=== PATIENT | female | born 1960 | race Caucasian/White ===

== ENCOUNTER → 2016-06-28 | Outpatient (CLI) | payer BC ==
--- NOTE | 2016-06-28 11:27 | MM ---
Reason for exam: screening (asymptomatic). Last mammogram was performed 1 year and 2 months ago. History: Patient is postmenopausal and had first child at age 38. Took hormonal contraceptives for 1 year. Physical Findings: A clinical breast exam by your physician is recommended on an annual basis and results should be correlated with mammographic findings. MG Screening Mammo w CAD Bilateral CC and MLO view(s) were taken. Prior study comparison: April 21, 2015, bilateral MG screening mammo w CAD. August 12, 2010, bilateral digital screening mammo w/CAD. The breast tissue is heterogeneously dense. This may lower the sensitivity of mammography. There is chronic nodularity in the left breast. There is no discrete abnormality. ASSESSMENT: Benign, BI-RAD 2 RECOMMENDATION: Routine screening mammogram of both breasts in 1 year.
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
== END | disposition home or self-care (01) ==
LOC: WWCWWP 08:49
PROVIDERS: ATTEND Obstetrics & Gynecology
DX: Z12.31 Encounter for screening mammogram for malignant neoplasm of breast (principal)

== ENCOUNTER → 2017-09-11 | Outpatient (CLI) | payer BC ==
--- NOTE | 2017-09-12 13:26 | MM ---
Reason for exam: screening (asymptomatic). Last mammogram was performed 1 year and 3 months ago. History: Patient is postmenopausal and had first child at age 38. Took hormonal contraceptives for 1 year. Physical Findings: A clinical breast exam by your physician is recommended on an annual basis and results should be correlated with mammographic findings. MG Screening Mammo w CAD Bilateral CC and MLO view(s) were taken. Prior study comparison: June 28, 2016, bilateral MG screening mammo w CAD. April 21, 2015, bilateral MG screening mammo w CAD. The breast tissue is heterogeneously dense. This may lower the sensitivity of mammography. There is chronic nodularity in the left axilla. There is no discrete abnormality. ASSESSMENT: Benign, BI-RAD 2 RECOMMENDATION: Routine screening mammogram of both breasts in 1 year.
== END | disposition home or self-care (01) ==
LOC: RADMAMWWP 11:27
PROVIDERS: ATTEND Internal Medicine
DX: Z12.31 Encounter for screening mammogram for malignant neoplasm of breast (principal)
CPT/HCPCS: 77067

== ENCOUNTER → 2017-10-25 | Outpatient (CLI) | payer BC ==
[2017-10-25 12:19] VITALS: BP 122/69; PULSE 65; TEMP 97.6; BMI 24.5
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
== END ==
LOC: WWCWWP 11:40
PROVIDERS: ATTEND Obstetrics & Gynecology
DX: Z53.9 Procedure and treatment not carried out, unspecified reason (principal)

== ENCOUNTER → 2018-05-17 | Outpatient (CLI) | payer BC ==
[2018-05-17 12:08] LABS: Basophils % (A) 1 %; Eosinophils # (A) 0.5 k/uL (0-0.7); Eosinophils % (A) 10 %; HCT 33.9 % (34.0-46.0); HGB 11.2 gm/dL (11.4-16.0); Lymphocytes # (A) 1.9 k/uL (1.0-4.8); Lymphocytes % (A) 38 %; MCH 27.8 pg (25.0-35.0); MCHC 33.1 g/dL (31.0-37.0); Mean Platelet Volume 6.5; Monocytes # (A) 0.3 k/uL (0-1.0); Monocytes % (A) 6 %; Neutrophils # (A) 2.1 k/uL (1.3-7.7); Neutrophils % (A) 41 %; Platelet Count 260 k/uL (150-450); RBC 4.04 m/uL (3.80-5.40); RDW 12.6 % (11.5-15.5); WBC 5.1 k/uL (3.8-10.6)
[2018-05-17 16:24] LABS: Hepatitis A Antibody IgM Non-Reactive (Non-Reactive); Hepatitis B Core IgM Non-Reactive (Non-Reactive)
[2018-05-18 12:49] LABS: ALT 33 U/L (8-44); AST 39 U/L (13-35); Albumin/Globulin Ratio 1.79 (1.20-2.10); Alkaline Phosphatase 87 U/L (41-126); Bilirubin, Conjugated <0.20 mg/dL (0.20-0.40); Globulin 2.4 g/dL (1.6-3.3); Total Bilirubin 0.3 mg/dL (0.2-1.2); Total Protein 6.7 g/dL (6.2-8.2)
[2018-05-18 14:16] LABS: HCV Quant Log <1.08 (<1.08); HCV Quantitative Result <12 IU/mL (<12)
== END | disposition home or self-care (01) ==
LOC: LABWHC1 11:27
PROVIDERS: ATTEND Physician Assistant
DX: Z09 Encounter for follow-up examination after completed treatment for conditions other than malignant neoplasm (principal); Z86.19 Personal history of other infectious and parasitic diseases
CPT/HCPCS: 36415; 80074; 80076; 85025; 87522

== ENCOUNTER → 2019-02-05 | Outpatient (CLI) | payer BC ==
[2019-02-05 11:23] VITALS: BP 144/89; PULSE 46; RESP 18; TEMP 97.8; BMI 31.1
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
--- NOTE | 2019-02-07 08:48 | MM ---
Reason for exam: screening (asymptomatic). Last mammogram was performed 1 year and 5 months ago. History: Patient is postmenopausal and had first child at age 38. Took hormonal contraceptives for 1 year. Physical Findings: A clinical breast exam by your physician is recommended on an annual basis and results should be correlated with mammographic findings. MG 3D Screening Mammo W/Cad Bilateral CC and MLO view(s) were taken. Prior study comparison: September 11, 2017, bilateral MG screening mammo w CAD. June 28, 2016, bilateral MG screening mammo w CAD. There are scattered fibroglandular densities. There is no discrete abnormality. No significant changes when compared with prior studies. ASSESSMENT: Negative, BI-RAD 1 RECOMMENDATION: Routine screening mammogram of both breasts in 1 year.
== END | disposition home or self-care (01) ==
LOC: WWCWWP 10:41
PROVIDERS: ATTEND Obstetrics & Gynecology
DX: Z12.31 Encounter for screening mammogram for malignant neoplasm of breast (principal)
CPT/HCPCS: 77063; 77067

== ENCOUNTER 2020-09-13 13:53 | Observation (INO) | payer BC ==
[2020-09-13] MEDS ORDERED: ASPIRIN 81 MG PO STA (14:07)
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
--- NOTE | 2020-09-13 14:46 | XR ---
EXAMINATION TYPE: XR chest 1V portable DATE OF EXAM: 09/13/2020 COMPARISON: NONE HISTORY: Chest pain. TECHNIQUE: Single view FINDINGS: Heart and mediastinum are normal. Lungs are clear of infiltrate. There is no heart failure. There are no hilar masses. Bony thorax is intact. IMPRESSION: No active cardiopulmonary disease. Normal heart.
[2020-09-13 15:01] LABS: Basophils % (A) 0 %; Eosinophils # (A) 0.3 k/uL (0-0.7); Eosinophils % (A) 3 %; HCT 35.3 % (34.0-46.0); HGB 11.4 gm/dL (11.4-16.0); Lymphocytes # (A) 3.1 k/uL (1.0-4.8); Lymphocytes % (A) 31 %; MCH 28.8 pg (25.0-35.0); MCHC 32.4 g/dL (31.0-37.0); MCV 88.9 fL (80.0-100.0); Mean Platelet Volume 7.1; Monocytes # (A) 0.5 k/uL (0-1.0); Monocytes % (A) 5 %; Neutrophils % (A) 59 %; Platelet Count 288 k/uL (150-450); RBC 3.97 m/uL (3.80-5.40); RDW 13.5 % (11.5-15.5); WBC 10.1 k/uL (3.8-10.6)
[2020-09-13 15:17] LABS: Albumin 3.9 g/dL (3.5-5.0); Calcium 9.2 mg/dL (8.4-10.2); Magnesium 1.9 mg/dL (1.6-2.3); Total Bilirubin 0.6 mg/dL (0.2-1.3); Total Protein 6.9 g/dL (6.3-8.2)
[2020-09-13 15:26] LABS: Potassium 4.9 mmol/L (3.5-5.1)
[2020-09-13] MEDS ORDERED: MORPHINE SULFATE 4 MG/ML SYRINGE IV PRN (15:46)
[2020-09-13] MEDS ORDERED: NALOXONE 0.4 MG/ML 1 ML VIAL IV PRN (15:46)
[2020-09-13] MEDS ORDERED: ACETAMINOPHEN TAB 325 MG TAB PO PRN (15:46)
[2020-09-13] MEDS ORDERED: NITROGLYCERIN SL TABS 0.4 MG TAB SUBLINGUAL PRN (15:50)
[2020-09-13] MEDS ORDERED: SODIUM CHLORIDE 0.9% 1,000 ML IV SCH (16:00)
[2020-09-13 16:37] LABS: D-Dimer 0.31 mg/L FEU (<0.60); INR 0.9 (<1.2)
[2020-09-13 16:53] LABS: Partial Thromboplastin Time 20.7 sec (22.0-30.0)
[2020-09-13 18:20] VITALS: RESP 18
[2020-09-13] MEDS ORDERED: ALBUTEROL NEBULIZED 2.5 MG/3 ML INHALATION PRN (18:46)
[2020-09-13] MEDS ORDERED: TEMAZEPAM 15 MG CAP PO PRN (18:47)
[2020-09-13] MEDS ORDERED: LORazepam 0.5 MG TAB PO PRN (18:47)
--- NOTE | 2020-09-13 19:48 | HP ---
HISTORY AND PHYSICAL DATE OF SERVICE: 09/13/2020. CHIEF COMPLAINT: Chest pain and chest constriction. HISTORY OF PRESENT ILLNESS: This 60-year-old woman with a past medical history of multiple medical problems including liver disease, history of hepatitis C, history of splenectomy, history of anxiety, history of polysubstance abuse in the remote past, being followed by Dr. Bryant in the outpatient setting was complaining of chest discomfort. The pain was felt in the anterior part of the chest, was constricting on both lower parts and the patient came to [facility] and was admitted for further evaluation and treatment. There is no history of fever, rigors or chills. No history of headache, loss of consciousness, seizures at this time. The patient did have an EKG that showed ST-T changes and non-progression R-wave. Otherwise, the chest x-ray which was done in the ER, which was reviewed personally by me, showed no acute abnormality. The initial troponins were negative. Creatinine was slightly elevated at 1.29. The previous creatinine values are not available at this time. The patient's pain also subsequently radiating to both arms and also radiate up to the neck according to her. There are no associated sweating or palpitations. PAST MEDICAL HISTORY: History of chronic liver disease, hepatitis C, history of splenectomy, history of anxiety. MEDICATIONS: Prior to admission home medications are: Zestril, fish oil, aspirin, Ventolin, Xanax, Restasis. ALLERGIES: None. FAMILY HISTORY: History of multiple sclerosis in the family in a sister. SOCIAL HISTORY: Previous history of smoking. No history of current smoking, alcohol intake. REVIEW OF SYSTEMS: ENT: No diminished vision. No diminished hearing. CARDIOVASCULAR SYSTEM: As mentioned earlier. RESPIRATORY: As mentioned earlier. GI: As mentioned earlier. no dysuria. NERVOUS SYSTEM: No numbness, weakness. ALLERGY/IMMUNOLOGY: No asthma or hayfever. MUSCULOSKELETAL: As mentioned earlier. HEMATOLOGY/ONCOLOGY: No history of anemia. ENDOCRINE: No history of diabetes or hypothyroidism. CONSTITUTIONAL: As mentioned earlier. DERMATOLOGY: Negative. RHEUMATOLOGY: Negative. PSYCHIATRY: As mentioned earlier. PHYSICAL EXAMINATION: Alert and oriented times three. Pulse 77. Blood pressure 130/72, respiration 18, temperature 97.3, pulse ox 97% on room air. HEENT: Conjunctivae normal. Oral mucosa moist. NECK is no jugular venous distention. No carotid bruit. No lymph node enlargement. CARDIOVASCULAR systems: S1, S2. RESPIRATION: Breath sounds diminished in the bases. No rhonchi. No crackles. ABDOMEN: Soft, nontender. No mass palpable. LEGS: No edema. No swelling. NERVOUS SYSTEM: Higher functions as mentioned. Moves all 4 limbs. No focal motor or sensory deficits. LYMPHATICS: No lymph nodes palpable in the neck, axillae or groin. SKIN: No ulcer, rashes or bleeding. JOINTS: No active deforming arthropathy. LABS: CBC within normal limits. Creatinine is 1.9, glucose 148. ASSESSMENT: 1. Chest pain, possible unstable angina. 2. Possible acute renal failure. 3. Elevated random glucose. 4. History of hepatitis C and chronic liver issues. 5. History of splenectomy. 6. History of anxiety. 7. Remote history of polysubstance abuse. RECOMMENDATIONS AND DISCUSSION: This 60-year-old woman presented with multiple complex medical issues, at this time, I recommend continue current medications, management and symptomatic treatment. Rule out myocardial infarction. Angina protocol. Cardiology consultation. Possible stress test. Guarded prognosis because of multiple complex medical issues. A copy of this dictation being forwarded to Dr. Bryant who is the primary physician. MMODL / IJN: [id number] / MTDD
[2020-09-13] MEDS ORDERED: LEMBOREXANT 10 MG PO SCH (21:00)
[2020-09-13] MEDS: cycloSPORINE 0.05% OPHTH 0.4 ML DROPERETTE BOTH EYES SCH (21:19)
[2020-09-13] MEDS: ALPRAZolam 1 MG TAB PO PRN (21:19)
[2020-09-13 21:46] LABS: Potassium 4.6 mmol/L (3.5-5.1)
[2020-09-13 21:47] LABS: ALT 19 U/L (4-34); AST 25 U/L (14-36); African American GFR (CKD) 60 (>60 ml/min/1.73 sqM); Albumin 3.7 g/dL (3.5-5.0); Albumin/Globulin Ratio 1.3; Alkaline Phosphatase 82 U/L (38-126); Anion Gap 8 mmol/L; Blood Urea Nitrogen 29 mg/dL (7-17); Calcium 9.3 mg/dL (8.4-10.2); Carbon Dioxide 25 mmol/L (22-30); Chloride 105 mmol/L (98-107); Globulin 2.9 g/dL; Glucose 95 mg/dL (74-99); Non-African American GFR(CKD) 52 (>60 ml/min/1.73 sqM); Sodium 138 mmol/L (137-145); Total Bilirubin 0.3 mg/dL (0.2-1.3); Total Protein 6.6 g/dL (6.3-8.2)
[2020-09-14] MEDS ORDERED: ASPIRIN 81 MG PO SCH (09:00)
[2020-09-14 09:06] LABS: Basophils # (A) 0.07 X 10*3/uL (0.00-0.10); Basophils % (A) 0.8 %; Eosinophils # (A) 0.45 X 10*3/uL (0.04-0.35); Eosinophils % (A) 4.9 %; HCT 35.1 % (37.2-46.3); Lymphocytes # (A) 3.21 X 10*3/uL (0.90-5.00); Lymphocytes % (A) 35.2 %; MCHC 31.3 g/dL (32.0-37.0); MCV 92.6 fL (80.0-97.0); Mean Platelet Volume 9.8 fL (9.5-12.2); Monocytes # (A) 0.65 X 10*3/uL (0.20-1.00); Monocytes % (A) 7.1 %; Neutrophils # (A) 4.72 X 10*3/uL (1.80-7.70); Neutrophils % (A) 51.7 %; Platelet Count 302 X 10*3/uL (140-440); RBC 3.79 X 10*6/uL (4.10-5.20); RDW 13.7 % (11.5-14.5); WBC 9.13 X 10*3/uL (4.50-10.00)
[2020-09-14] MEDS: ALPRAZolam 1 MG TAB PO PRN (09:31)
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
[2020-09-14 09:34] VITALS: TEMP 97.6
[2020-09-14] MEDS: cycloSPORINE 0.05% OPHTH 0.4 ML DROPERETTE BOTH EYES SCH (10:36)
[2020-09-14] MEDS ORDERED: DOBUTamine DRIP for NUC MED 500 MG in DEXTROSE/WATER 1 250ML.BAG IV PRN (10:52)
--- NOTE | 2020-09-14 11:18 | ECHOF ---
Referral Reason:chest pain MEASUREMENTS -------- HEIGHT: 165.1 cm WEIGHT: 90.7 kg BP: RVIDd: 2.8 cm (< 3.3) IVSd: 1.2 cm (0.6 - 1.1) LVIDd: 4.4 cm (3.9 - 5.3) LVPWd: 0.6 cm (0.6 - 1.1) IVSs: 1.3 cm LVIDs: 3.6 cm LVPWs: 1.1 cm LAESV Index (A-L): 28.96 ml/m Ao Diam: 3.2 cm (2.0 - 3.7) AV Cusp: 2.3 cm (1.5 - 2.6) LA Diam: 3.5 cm (2.7 - 3.8) MV EXCURSION: 12.148 mm (> 18.000) MV EF SLOPE: 83 mm/s (70 - 150) EPSS: 0.3 cm MV E Marcello: 0.62 m/s MV DecT: 197 ms MV A Marcello: 0.89 m/s MV E/A Ratio: 0.70 RAP: 5.00 mmHg RVSP: 24.64 mmHg FINDINGS -------- Sinus rhythm. This was a technically adequate study. LV size, wall thickness and systolic function are normal, with an EF greater than 55%. The left nael tricular size is normal. The diastolic filling pattern is normal for the age of the patient 7.38. The right ventricle is normal in size. Normal LA size by volume 22+/-6 ml/m2. The right atrial size is normal. The aortic valve is trileaflet, and appears structurally normal. No aortic stenosis or regurgitation. The mitral valve is normal. Mild mitral regurgitation is present. The tricuspid valve appears structurally normal. Mild tricuspid regurgitation present. Right vent ricular systolic pressure is normal at < 35 mmHg. There is no pulmonic regurgitation present. The aortic root size is normal. There is no pericardial effusion. CONCLUSIONS -------- 1. LV size, wall thickness and systolic function are normal, with an EF greater than 55%. 2. Normal LA size by volume 22+/-6 ml/m2. 3. The aortic valve is trileaflet, and appears structurally normal. No aortic stenosis or regurgitati on. 4. Mild mitral regurgitation is present. 5. Mild tricuspid regurgitation present. PAINT MIXER: Myrna Escalante RDCS
[2020-09-14 13:03] VITALS: BP 125/90; PULSE 68
--- NOTE | 2020-09-14 13:52 | ECHOS ---
STRESS ECHOCARDIOGRAM INDICATIONS: Chest pain MEDICATIONS: BASELINE HEART RATE: 67 BASELINE BLOOD PRESSURE: 131/73 MAXIMUM HEART RATE: 130 MAXIMUM BLOOD PRESSURE: 242/43 85% MPHR: 137 100% MPHR: 161 METS: N/A MAXIMUM STAGE REACHED: TOTAL EXERCISE TIME: CLINICAL INFORMATION: Baseline rhythm is sinus mechanism, rate of 67, normal axis and intervals. Normal electrocardiogram. Baseline blood pressure 131/73 mmHg. Patient received infusion of dobutamine per protocol, peak rate 124 beats per minute which is equal to 77% of maximum predicted heart rate. Peak blood pressure 242/63 mmHg. Electrocardiograph monitoring revealed no evidence of diagnostic ischemic ST deviation. Rare PVCs were noted. FINDINGS: Baseline echocardiogram revealed normal wall thickening and motion. At peak infusion, there was normal wall motion augmentation with no hypokinesis or dyskinesis. CONCLUSION: 1. Nondiagnostic electrocardiograph dobutamine stress testing secondary to the inability to achieve 85% maximum predicted heart rate. 2. Nondiagnostic stress dobutamine echocardiogram secondary to the inability to achieve 85% maximum predicted heart rate, but at the rate achieved there was no evidence of stress-induced ischemia. MMODL / IJN: [id number] /
--- NOTE | 2020-09-14 20:41 | DS ---
DISCHARGE SUMMARY FINAL DIAGNOSES: 1. Chest pain. Myocardial infarction ruled out. Nondiagnostic stress test. 2. Possible acute renal failure with acute tubular necrosis. 3. Increased random glucose. 4. History of hepatitis C and chronic liver disease. 5. History of splenectomy. 6. History of anxiety. 7. Remote history of polysubstance abuse. DISCHARGE DISPOSITION: The patient will be discharged in stable condition with guarded prognosis. HISTORY OF PRESENT ILLNESS: This 60-year-old woman with a past medical history of multiple medical problems presented with chest pain. Myocardial infarction was ruled out. Cardiology performed a stress test, but the test was nondiagnostic because of the lack of achieving the maximal heart rate. The patient is stable at this time. Patient was recommend to be discharged and follow up in the outpatient setting. On exam, vitals are stable. CARDIOVASCULAR SYSTEM: S1, S2 muffled. ABDOMEN: Soft. NERVOUS SYSTEM: No focal deficit. DISCHARGE ADVICE AND MEDICATIONS: 1. Cardiac diet. 2. Activity limited until followup. 3. Follow up with Dr. Bryant in 2-3 days. 4. Follow up with Dr. Franco, Cardiology, and outpatient stress test possibly. 5. Dayvigo 10 mg at bedtime. 6. Ecotrin 81 mg daily. 7. Winfield-3 fatty acids 1 p.o. daily. 8. Restasis 1 drop both eyes. 9. Subutex 8 mg p.o. daily. 10.Ventolin 2 puffs q.i.d. and p.r.n. 11.Xanax 1 mg t.i.d. p.r.n. Once again, the patient will be discharged in stable condition with guarded prognosis. MMODL / IJN: [id number] /
== END 2020-09-14 14:06 | disposition left against medical advice (07) ==
LOC: EC 13:53 → 6NMEDSUR 15:46
PROVIDERS: ADMIT Hospitalist; ATTEND Hospitalist
DX: R07.89 Other chest pain (principal); B18.2 Chronic viral hepatitis C; R79.89 Other specified abnormal findings of blood chemistry; R73.09 Other abnormal glucose; F41.9 Anxiety disorder, unspecified; Z79.82 Long term (current) use of aspirin; Z79.899 Other long term (current) drug therapy; Z20.822 Contact with and (suspected) exposure to COVID-19; Z90.81 Acquired absence of spleen; Z86.79 Personal history of other diseases of the circulatory system; Z86.19 Personal history of other infectious and parasitic diseases; Z87.898 Personal history of other specified conditions; Z87.891 Personal history of nicotine dependence; Z82.0 Family history of epilepsy and other diseases of the nervous system; Z53.29 Procedure and treatment not carried out because of patient's decision for other reasons
CPT/HCPCS: 96361 ×2; 96360; 99285; 36415; 93005; 93306; 93351; 85379; 80053; 87449; 83735; 84484; 85025 ×2; 85610; 85730; 87635; 71045; G0378 ×2

== ENCOUNTER → 2020-10-06 | Outpatient (CLI) | payer BC ==
[2020-10-06 18:14] LABS: African American GFR (CKD) 47.5 (60.0-200.0); Albumin 4.3 g/dL (3.80-4.90); Albumin/Globulin Ratio 1.65 (1.60-3.17); Anion Gap 12.4 mmol/L (4.00-12.00); BUN/Creat Ratio 27.14 Ratio (12.00-20.00); Calcium 9.3 mg/dL (8.7-10.3); Carbon Dioxide 21.6 mmol/L (21.6-31.8); Globulin 2.6 g/dL (1.6-3.3); Potassium 4.6 mmol/L (3.5-5.5); Total Bilirubin 0.5 mg/dL (0.2-1.2); Total Protein 6.9 g/dL (6.2-8.2)
== END | disposition home or self-care (01) ==
LOC: LABWHC1 09:29
PROVIDERS: ATTEND Internal Medicine
DX: N18.9 Chronic kidney disease, unspecified (principal); R94.5 Abnormal results of liver function studies; R73.9 Hyperglycemia, unspecified
CPT/HCPCS: 36415; 80053

== ENCOUNTER → 2020-10-14 | Outpatient (CLI) | payer BC ==
[2020-10-14 10:05] VITALS: BP 111/75; PULSE 80; RESP 18; TEMP 98
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
--- NOTE | 2020-10-15 11:17 | MM ---
Reason for exam: screening (asymptomatic). Last mammogram was performed 1 year and 8 months ago. History: Patient is postmenopausal and had first child at age 38. Took hormonal contraceptives for 1 year. Physical Findings: A clinical breast exam by your physician is recommended on an annual basis and results should be correlated with mammographic findings. MG Screening Mammo w CAD Bilateral CC and MLO view(s) were taken. Prior study comparison: February 05, 2019, bilateral MG 3d screening mammo w/cad. September 11, 2017, bilateral MG screening mammo w CAD. The breast tissue is heterogeneously dense. This may lower the sensitivity of mammography. There are benign appearing round calcifications in the right breast. There is chronic nodularity in the left breast. There is no discrete abnormality. ASSESSMENT: Benign, BI-RAD 2 RECOMMENDATION: Routine screening mammogram of both breasts in 1 year.
== END | disposition home or self-care (01) ==
LOC: WWCWWP 09:36
PROVIDERS: ATTEND Obstetrics & Gynecology
DX: Z12.31 Encounter for screening mammogram for malignant neoplasm of breast (principal); Z78.0 Asymptomatic menopausal state
CPT/HCPCS: 77067

== ENCOUNTER → 2020-12-03 | Outpatient (CLI) | payer BC ==
[2020-12-04 03:31] LABS: African American GFR (CKD) 57.3 (60.0-200.0); Non-African American GFR(CKD) 49.4 (60.0-200.0)
== END | disposition home or self-care (01) ==
LOC: LABWHC1 13:18
PROVIDERS: ATTEND Internal Medicine
DX: N18.9 Chronic kidney disease, unspecified (principal); R73.9 Hyperglycemia, unspecified
CPT/HCPCS: 36415; 82565; 82947; 83036; 84520

== ENCOUNTER → 2021-03-30 | Outpatient (CLI) | payer OTHER ==
--- NOTE | 2021-03-30 13:48 | XR ---
EXAMINATION TYPE: XR lumbosacral spine 5 views, XR knee limited 2 views RT DATE OF EXAM: 03/30/2021 Comparison: None Clinical History: 61-year-old female M54.5 lumbar pain, M25.561, right knee pain. Findings: Lumbar spine: There is a transitional lumbosacral segment with left L5 hemisacralization and degenerative appearanc e to the assimilation joint. Moderate degenerative disc disease above at L4-L5 along with hypertrophi c facet arthropathy. Mild to moderate degenerative disc disease L3-L4. Vertebral body heights are pre served and alignment is maintained. Right knee: Tricompartmental degenerative spurring. Extensor mechanism appears intact. No knee joint effusion. We ightbearing view could better assess the degree of joint space narrowing. No acute fracture, subluxat ion, or dislocation. Impression: 1. 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 Moderate degenerat gracie disc disease above at L4-L5 along with hypertrophic facet arthropathy and mild to moderate degene rative disc disease L3-L4. No vertebral compression collapse. 2. Right knee: Mild to moderate tricompartmental degenerative spurring. Weightbearing view could bett er assess the degree of joint space narrowing. No knee joint effusion.
== END | disposition home or self-care (01) ==
LOC: RADXRMAIN 12:49
PROVIDERS: ATTEND Family Medicine
DX: M51.36 Other intervertebral disc degeneration, lumbar region (principal); M47.896 Other spondylosis, lumbar region; M25.561 Pain in right knee; M54.50 Low back pain, unspecified
CPT/HCPCS: 72110

== ENCOUNTER → 2022-01-21 | Outpatient (CLI) | payer BC ==
--- NOTE | 2022-01-21 14:23 | MR ---
EXAMINATION TYPE: MR knee LT wo con DATE OF EXAM: 01/21/2022 COMPARISON: Outside bilateral knee x-rays January 04, 2022 HISTORY: LEFT KNEE PAIN TECHNIQUE: Multiplanar, multisequence imaging of the left knee is performed without IV contrast. FINDINGS: MEDIAL MENISCUS: Medial extrusion of medial meniscus with increased signal. Truncated appearance post erior horn with increased signal extending to articular surface sagittal image 27. LATERAL MENISCUS: Anterior and posterior horns are intact without tear. CRUCIATE LIGAMENTS: The anterior and posterior cruciate ligaments are intact and unremarkable. COLLATERAL LIGAMENTS: The medial collateral ligament and lateral collateral ligament complex are inta ct and unremarkable. EXTENSOR MECHANISM: Visualized quadriceps and patellar tendons are intact. EFFUSION: No significant suprapatellar joint effusion. POPLITEAL CYST: No popliteal/sahni cyst. TRICOMPARTMENT SPACES: Moderate to severe narrowing and spurring patellofemoral compartment. Mild to moderate narrowing and moderate spurring lateral tibiofemoral and medial tibiofemoral compartments. CARTILAGE: Chondromalacia patella with fissuring and cartilaginous loss along the posterior patellar pole. Full-thickness defect superiorly are present. Cartilaginous loss medial tibiofemoral compartmen t also identified. BONE MARROW SIGNAL: Areas of heterogeneous increased T2 signal through the posterior patellar pole gr eatest superiorly are identified. OTHER: No additional significant abnormality is appreciated. IMPRESSION: 1. Tricompartment degenerative changes fairly advanced involving the patellofemoral compartment are n oted as detailed above. Moderate to advanced findings medial tibial femoral compartment noted. 2. Full-thickness tearing of the posterior horn extending into central body of the medial meniscus.
== END | disposition home or self-care (01) ==
LOC: RADMRIMAIN 12:50
PROVIDERS: ATTEND Orthopaedic Surgery
DX: S83.242A Other tear of medial meniscus, current injury, left knee, initial encounter (principal); X58.XXXA Exposure to other specified factors, initial encounter

== ENCOUNTER → 2022-01-26 | Outpatient (CLI) | payer BC ==
[2022-01-26 08:09] VITALS: BP 116/78; PULSE 81; RESP 17; TEMP 97.8
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
== END ==
LOC: WWCWWP 07:54
PROVIDERS: ATTEND Obstetrics & Gynecology
DX: Z12.31 Encounter for screening mammogram for malignant neoplasm of breast (principal); Z01.419 Encounter for gynecological examination (general) (routine) without abnormal findings; Z78.0 Asymptomatic menopausal state; F41.9 Anxiety disorder, unspecified; Z87.891 Personal history of nicotine dependence
CPT/HCPCS: 77063; 77067

== ENCOUNTER → 2022-02-09 | Outpatient (CLI) | payer BC ==
--- NOTE | 2022-02-09 14:43 | USB ---
Reason for Exam: Additional evaluation requested from abnormal screening. Patient History: Menarche at age 16. First Full-Term at age 38. Late child-bearing (after 30). Postmenopausal. Patient used Hormonal Contraceptives for 1 year. Risk Values: Cathryn 5 year model risk: 1.8%. NCI Lifetime model risk: 9.1%. Technique: Method: Targeted. Prior Study Comparison: 02/05/2019 Bilateral Screening Mammogram, [facility]. 10/14/2020 Bilateral Screening Mammogram, [facility]. 01/26/2022 Bilateral MG 3D screening mammo w/cad, [facility]. Findings: The upper outer quadrant of the right breast and the axilla of the right breast were scanned. No solid or cystic masses are identified.. Overall Assessment: Negative, BI-RAD 1 Management: Diagnostic Mammogram of the right breast in 6 months. A clinical breast exam by your physician is recommended on an annual basis and results should be correlated with mammographic findings. Electronically signed and approved by: Rakan Sheikh M.D. Radiologis
== END | disposition home or self-care (01) ==
LOC: RADMAMWWP 13:44
PROVIDERS: ATTEND Obstetrics & Gynecology
DX: R92.8 Other abnormal and inconclusive findings on diagnostic imaging of breast (principal)
CPT/HCPCS: 77061; 77065

== ENCOUNTER 2022-08-04 11:09 | Day surgery (SDC) | payer BC ==
[2022-07-28 11:48] VITALS: BMI 31.4
--- NOTE | 2022-08-03 21:33 | HP ---
HISTORY AND PHYSICAL DATE OF SURGERY: 08/04/2022. HISTORY OF PRESENT ILLNESS: Sienna Brooks is a 62-year-old patient seen with progressive left knee pain. We discussed options for treatment. She elected to proceed with a left knee arthroscopy. Consent regarding procedure was obtained. PAST MEDICAL HISTORY: Hypertension. PAST SURGICAL HISTORY: Noncontributory. DAILY MEDICATIONS: 1. Lisinopril. 2. Aleve. 3. Wellbutrin. ALLERGIES: None. SOCIAL HISTORY: She denies tobacco use. PHYSICAL EVALUATION OF THE LEFT KNEE: Range of motion is 0 to 110 degrees. Mild effusion. Tenderness along the medial and lateral joint lines. Positive medial Toyin's. Positive lateral Toyin's. Ligaments stable. Hip rotation without pain. Distal neurovascular exam is intact. RADIOGRAPHS: Radiographs of the left knee revealed moderate osteoarthritic changes. MRI left knee revealed medial meniscal tear and osteoarthritic changes. IMPRESSION: 1. Internal derangement of left knee with medial meniscal tear. 2. Hypertension. PLAN: Left knee arthroscopy with partial medial meniscectomy and debridement. MMODL / IJN: [id number] /
[~2022-08-04 11:09] MED LIST: DEXAMETHASONE SOD PHOSPHATE 4 MG/ML 1 ML VIAL IV ONE; LACTATED RINGERS 1,000 ML IV SCH; LIDOCAINE 1% (10MG/ML) FOR IV START INTRADERMA PRN; MIDAZOLAM 2 MG/2 ML VIAL IV PRN; ONDANSETRON 4 MG/2 ML VIAL IVP ONE
[2022-08-04] MEDS ORDERED: PROPOFOL 10 MG/ML 20 ML VIAL IV ONE (12:33)
[2022-08-04] MEDS ORDERED: LIDOCAINE 2% INJ 20 MG/ML (2 ML VIAL) ONE (12:33)
[2022-08-04] MEDS ORDERED: MIDAZOLAM 2 MG/2 ML VIAL ONE (12:33)
[2022-08-04] MEDS ORDERED: fentaNYL (PF) 50 MCG/ML 2 ML AMP ONE (12:33)
[2022-08-04] MEDS ORDERED: KETAMINE 10 MG/ML 20 ML VIAL ONE (12:33)
[2022-08-04] MEDS ORDERED: HYDROmorphone (PF) 1 MG/ML ONE (12:33)
[2022-08-04] MEDS ORDERED: BUPIVACAIN-EPI 0.25%-1:200,000 30 ML VIAL INTRAARTIC ONE (12:38)
--- NOTE | 2022-08-04 13:21 | P.OP ---
Date of Procedure: 08/04/22 Preoperative Diagnosis: Internal derangement left knee Postoperative Diagnosis: 1. Tear medial and lateral meniscus left knee 2. Grade 4 chondromalacia medial femoral condyle left knee 3. Grade 2 chondromalacia patella left knee 4. Reactive synovitis medial, lateral and suprapatellar compartments left knee Procedure(s) Performed: 1. Arthroscopic partial medial and lateral meniscectomy left knee 2. Arthroscopic microfracture medial femoral condyle left knee 3. Arthroscopic chondroplasty medial femoral condyle left knee 4. Arthroscopic chondroplasty patella left knee 5. Arthroscopic partial synovectomy medial, lateral and suprapatellar miko rtments left knee Anesthesia: ENEDINAA, local Surgeon: Mike Dawson Estimated Blood Loss (ml): 9 Pathology: none sent Condition: stable Disposition: PACU Indications for Procedure: 62-year-old patient seen with progressive left knee pain. After having treatment options discussed, she elected to proceed with left knee arthroscopy. Operative Findings: See description of procedure Description of Procedure: Patient was taken to the operative suite. Patient underwent a general anesthetic by the department of anesthesia. Patient was given preoperative antibiotics. The left lower extremity was placed in a well-padded arthroscopic leg arizmendi. The left leg was prepped and draped in the normal sterile orthopedic fashion. A lateral parapatellar and suprapatellar incision was made. Trochars were inserted. Arthroscopy was initiated. Suprapatellar pouch revealed diffuse thick reactive synovitis. The patellofemoral joint appeared to articulate congruently. There was grade 3, she patella with some osteochondral flap tears present.. The scope was guided into the medial gutter. No loose bodies or plica were identified. The scope was then guided into the medial compartment. A medial parapatellar incision was made. Trocar inserted followed by probe. There was a complex tear involving the posterior horn of the medial meniscus. There were grade 3/4 chondromalacia changes of the medial femoral condyle with some diffuse osteochondral flap tears present. There was some thick reactive synovitis anteriorly. I performed a partial medial meniscectomy getting down to stable meniscal tissue. I performed a chondroplasty of the medial femoral condyle getting down to stable osteochondral tissue. I performed a partial synovectomy decompressing the thick reactive synovitis. I did note an area of exposed bone weightbearing surface medial femoral condyle/grade 4 chondromalacia. It was approximately 1 cm involving the weightbearing surface. I introduced a microfracture awl. I performed a microfracture to the area with resultant bleeding at the microfracture site. I again probe the residual osteochondral surface it was stable. The residual meniscus was stable. There was good decompression of the synovitis. Scope and probe were then guided into the intercondylar notch. Cruciates were identified, probed and found to be stable. The scope and probe were then guided into lateral compartment. There was a radial tear involving the midbody lateral meniscus. There was some thick reactive synovitis anteriorly. There were grade 1 chondromalacia changes of lateral compartment with no tears. I performed a partial lateral meniscectomy getting down to stable meniscal tissue. I performed a partial synovectomy decompressing the reactive synovitis. The residual meniscus was stable. There was good decompression of the synovitis. The scope was in guided back into the suprapatellar compartment. I introduced a motorized shaver into the s uprapatellar compartment. I debrided some piecemeal fragments of meniscus I encountered. I performed a chondroplasty of the patella. I performed a partial synovectomy. The shaver was now removed. The residual osteochondral surface of patella was stable. There was good decompression of the synovitis. I now took one more look around the entire knee, no residual debris. Instruments were now removed from the joint. The joint was infiltrated with .25% Marcaine. Steri- Strips were applied to the portal sites. Sterile dressings were applied. The patient was placed into a KAYLA hose. No tourniquet was utilized. The patient was awakened, transferred to a bed and taken to recovery stable satisfactory condition.
[2022-08-04 13:27] VITALS: TEMP 97.4
[2022-08-04] MEDS: HYDROmorphone 0.5 MG/0.5 ML SYRINGE IVP PRN ×2 (13:33→13:49)
[2022-08-04 14:26] VITALS: RESP 16
[2022-08-04 15:20] VITALS: BP 160/83; PULSE 56
== END 2022-08-04 16:00 | disposition home or self-care (01) ==
LOC: OR 11:09
PROVIDERS: ATTEND Orthopaedic Surgery
DX: S83.282A Other tear of lateral meniscus, current injury, left knee, initial encounter (principal); S83.242A Other tear of medial meniscus, current injury, left knee, initial encounter; M17.12 Unilateral primary osteoarthritis, left knee; I10 Essential (primary) hypertension; M22.42 Chondromalacia patellae, left knee; M65.9 Synovitis and tenosynovitis, unspecified; X58.XXXA Exposure to other specified factors, initial encounter
CPT/HCPCS: 29880; 29879; J2250; J1100; J0690; J2405; J3010; J1170 ×2; J2704; J2001

== ENCOUNTER → 2022-09-02 | Outpatient (CLI) | payer BC ==
[2022-09-02 15:49] LABS: Potassium 5.1 mmol/L (3.5-5.5)
[2022-09-02 16:20] LABS: Basophils # (A) 0.06 X 10*3/uL (0.00-0.10); Eosinophils # (A) 1.12 X 10*3/uL (0.04-0.35); Eosinophils % (A) 19.5 %; HCT 36.2 % (37.2-46.3); HGB 11.7 g/dL (12.0-15.0); Immature Grans, Automated 0.2 %; Lymphocytes # (A) 1.48 X 10*3/uL (0.90-5.00); Lymphocytes % (A) 25.8 %; MCH 28.9 pg (27.0-32.0); MCHC 32.3 g/dL (32.0-37.0); MCV 89.4 fL (80.0-97.0); Mean Platelet Volume 11.1 fL (9.5-12.2); Monocytes # (A) 0.39 X 10*3/uL (0.20-1.00); Monocytes % (A) 6.8 %; NRBC Per 100 WBC 0 /100 WBCS (0.0-0.0); Neutrophils # (A) 2.67 X 10*3/uL (1.80-7.70); Neutrophils % (A) 46.7 %; Platelet Count 234 X 10*3/uL (140-440); RBC 4.05 X 10*6/uL (4.10-5.20); RDW 13.2 % (11.5-14.5); WBC 5.73 X 10*3/uL (4.50-10.00)
[2022-09-02 16:21] LABS: RBC Morphology NORMAL
== END | disposition home or self-care (01) ==
LOC: LABPAT 09:14
PROVIDERS: ATTEND Orthopaedic Surgery
DX: Z01.812 Encounter for preprocedural laboratory examination (principal); M23.91 Unspecified internal derangement of right knee
CPT/HCPCS: 80051; 85025

== ENCOUNTER 2022-09-08 13:29 | Observation (INO) | payer OTHER, BC ==
[2022-09-08] MEDS ORDERED: HYDROmorphone 0.5 MG/0.5 ML SYRINGE IVP STA (13:39)
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
[2022-09-08 14:02] LABS: Basophils % (A) 0 %; Eosinophils # (A) 0.9 k/uL (0-0.7); Eosinophils % (A) 14 %; HCT 33.7 % (34.0-46.0); HGB 11.6 gm/dL (11.4-16.0); Lymphocytes # (A) 1.6 k/uL (1.0-4.8); Lymphocytes % (A) 25 %; MCH 29.6 pg (25.0-35.0); MCHC 34.3 g/dL (31.0-37.0); MCV 86.4 fL (80.0-100.0); Mean Platelet Volume 7.4; Monocytes # (A) 0.3 k/uL (0-1.0); Monocytes % (A) 5 %; Neutrophils # (A) 3.3 k/uL (1.3-7.7); Neutrophils % (A) 53 %; Platelet Count 237 k/uL (150-450); RBC 3.91 m/uL (3.80-5.40); RDW 12.9 % (11.5-15.5); WBC 6.3 k/uL (3.8-10.6)
[2022-09-08 14:10] LABS: Partial Thromboplastin Time 24.5 sec (22.0-30.0); Prothrombin Time 10.2 sec (9.0-12.0)
[2022-09-08 14:16] LABS: ALT 130 U/L (4-34); AST 60 U/L (14-36); African American GFR (CKD) 32 (>60 ml/min/1.73 sqM); Albumin 4.3 g/dL (3.5-5.0); Alcohol <10 mg/dL; Alkaline Phosphatase 97 U/L (38-126); Anion Gap 9 mmol/L; Blood Urea Nitrogen 41 mg/dL (7-17); Calcium 9.3 mg/dL (8.4-10.2); Carbon Dioxide 23 mmol/L (22-30); Chloride 107 mmol/L (98-107); Glucose 113 mg/dL (74-99); Non-African American GFR(CKD) 28 (>60 ml/min/1.73 sqM); Potassium 5.5 mmol/L (3.5-5.1); Sodium 139 mmol/L (137-145); Total Bilirubin 0.4 mg/dL (0.2-1.3); Total Protein 7.3 g/dL (6.3-8.2)
[2022-09-08] MEDS ORDERED: HYDROmorphone 1 MG/ML 1 ML SYRINGE IVP STA (14:31)
[2022-09-08] MEDS ORDERED: HYDROmorphone 1 MG/ML 1 ML SYRINGE IM STA (14:35)
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
[2022-09-08] MEDS ORDERED: HYDROmorphone 0.5 MG/0.5 ML SYRINGE IVP PRN (15:12)
[2022-09-08] MEDS ORDERED: NALOXONE 0.4 MG/ML 1 ML VIAL IV PRN (15:12)
[2022-09-08] MEDS ORDERED: ONDANSETRON 4 MG/2 ML VIAL IVP PRN (15:12)
[2022-09-08] MEDS: SODIUM CHLORIDE 0.9% 1,000 ML IV SCH (15:37)
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
[2022-09-08 17:00] LABS: Amphetamine Screen,Urine Not Detected (NotDetected); Barbiturate Screen,Urine Not Detected (NotDetected); Benzodiazepines Screen,Urine Detected (NotDetected); Cocaine Screen,Urine Not Detected (NotDetected); Methadone Screen, Urine Not Detected (NotDetected); Opiate Screen,Urine Detected (NotDetected); Oxycodone Screen, Urine Not Detected (NotDetected); Phencyclidine Screen,Urine Not Detected (NotDetected); Tricyclic Antidepressant,Urine Detected (NotDetected); Urn Cannabinoid Scrn Not Detected (NotDetected)
[2022-09-08] MEDS: HYDROmorphone 1 MG/ML 1 ML SYRINGE IVP PRN ×2 (18:33→22:52)
[2022-09-08] MEDS ORDERED: IPRATROPIUM 0.5 MG/2.5 ML NEBU INHALATION PRN (18:43)
[2022-09-08] MEDS ORDERED: NON FORMULARY DRUG (Aspirin Ec 81 MG Tablet) PO SCH (18:45)
[2022-09-08] MEDS ORDERED: SYMBICORT 80-4.5 MCG INHALER INHALATION PRN (18:53)
[2022-09-08] MEDS ORDERED: FAMOTIDINE 20 MG TAB PO SCH (21:00)
[2022-09-08] MEDS: QUEtiapine 100 MG TAB PO SCH (21:17)
[2022-09-08] MEDS: PRAMIPEXOLE 0.5 MG TAB PO SCH (21:17)
[2022-09-08] MEDS: traMADol 50 MG TAB PO PRN (21:18)
[2022-09-08] MEDS: FAMOTIDINE 20 MG TAB PO SCH (21:18)
[2022-09-08] MEDS: cycloSPORINE 0.05% OPHTH 0.4 ML DROPERETTE BOTH EYES SCH (21:18)
[2022-09-08] MEDS: methylPREDNISolone SOD SUCCI 125 MG/2 ML VIAL IV SCH (22:58)
[2022-09-09] MEDS: SODIUM CHLORIDE 0.9% 1,000 ML IV SCH ×4 (00:23→23:03)
[2022-09-09] MEDS: HYDROmorphone 1 MG/ML 1 ML SYRINGE IVP PRN ×6 (02:13→20:44)
[2022-09-09 05:29] LABS: Albumin 3.9 g/dL (3.5-5.0)
[2022-09-09 05:38] LABS: Basophils % (A) 0 %; Eosinophils % (A) 1 %; HCT 30.9 % (34.0-46.0); HGB 10.5 gm/dL (11.4-16.0); Lymphocytes # (A) 0.6 k/uL (1.0-4.8); Lymphocytes % (A) 8 %; MCH 29.8 pg (25.0-35.0); MCV 87.6 fL (80.0-100.0); Mean Platelet Volume 7.9; Monocytes # (A) 0.1 k/uL (0-1.0); Monocytes % (A) 2 %; Neutrophils # (A) 6.8 k/uL (1.3-7.7); Neutrophils % (A) 89 %; Platelet Count 145 k/uL (150-450); RBC 3.52 m/uL (3.80-5.40); RDW 12.9 % (11.5-15.5); WBC 7.7 k/uL (3.8-10.6)
[2022-09-09 06:01] LABS: ALT 92 U/L (4-34); AST 44 U/L (14-36); African American GFR (CKD) 37 (>60 ml/min/1.73 sqM); Albumin/Globulin Ratio 1.3; Alkaline Phosphatase 83 U/L (38-126); Anion Gap 11 mmol/L; Blood Urea Nitrogen 34 mg/dL (7-17); Calcium 9.1 mg/dL (8.4-10.2); Carbon Dioxide 19 mmol/L (22-30); Chloride 110 mmol/L (98-107); Globulin 2.9 g/dL; Glucose 165 mg/dL (74-99); Non-African American GFR(CKD) 32 (>60 ml/min/1.73 sqM); Potassium 5.6 mmol/L (3.5-5.1); Sodium 140 mmol/L (137-145); Total Bilirubin 0.5 mg/dL (0.2-1.3); Total Protein 6.8 g/dL (6.3-8.2)
[2022-09-09] MEDS ORDERED: SODIUM BICARB 8.4% 50 ML SYR (1 MEQ/ML) IV STA (07:09)
[2022-09-09] MEDS ORDERED: SODIUM ZIRCONIUM CYCLOSILICATE 10 GM PACKET PO ONE (07:30)
[2022-09-09] MEDS: methylPREDNISolone SOD SUCCI 125 MG/2 ML VIAL IV SCH ×3 (08:30→23:03)
[2022-09-09] MEDS: SODIUM BICARBONATE TAB 650 MG TAB PO SCH ×3 (08:46→23:03)
[2022-09-09] MEDS: ALPRAZolam 0.5 MG TAB PO SCH (08:46)
[2022-09-09] MEDS: buPROPion XL 300 MG TAB.ER.24H PO SCH (08:46)
[2022-09-09] MEDS: MULTIVITAMINS, THERA 1 EACH TAB PO SCH (08:46)
[2022-09-09] MEDS: cycloSPORINE 0.05% OPHTH 0.4 ML DROPERETTE BOTH EYES SCH ×2 (08:47→20:37)
[2022-09-09] MEDS: NON FORMULARY DRUG (Buprenorphine Hcl [Subutex] 8 MG Tab.Subl) PO SCH (08:53)
[2022-09-09] MEDS: NON FORMULARY DRUG (Linaclotide [Linzess] 145 MCG Capsule) PO SCH (08:53)
[2022-09-09] MEDS ORDERED: ALPRAZolam 0.5 MG TAB PO SCH (09:00)
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
[2022-09-09] MEDS: traMADol 50 MG TAB PO PRN (16:12)
[2022-09-09] MEDS: PRAMIPEXOLE 0.5 MG TAB PO SCH (20:37)
[2022-09-09] MEDS: FAMOTIDINE 20 MG TAB PO SCH (20:37)
[2022-09-09] MEDS: QUEtiapine 100 MG TAB PO SCH (20:38)
[2022-09-10] MEDS: HYDROmorphone 1 MG/ML 1 ML SYRINGE IVP PRN ×5 (02:27→20:21)
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
[2022-09-10 07:10] LABS: African American GFR (CKD) 56 (>60 ml/min/1.73 sqM); Anion Gap 8 mmol/L; Blood Urea Nitrogen 25 mg/dL (7-17); Calcium 8.5 mg/dL (8.4-10.2); Carbon Dioxide 24 mmol/L (22-30); Chloride 107 mmol/L (98-107); Glucose 125 mg/dL (74-99); Non-African American GFR(CKD) 49 (>60 ml/min/1.73 sqM); Potassium 4.1 mmol/L (3.5-5.1); Sodium 139 mmol/L (137-145)
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
[2022-09-10] MEDS: methylPREDNISolone SOD SUCCI 125 MG/2 ML VIAL IV SCH ×3 (09:10→22:55)
[2022-09-10] MEDS: NON FORMULARY DRUG (Buprenorphine Hcl [Subutex] 8 MG Tab.Subl) PO SCH (09:11)
[2022-09-10] MEDS: buPROPion XL 300 MG TAB.ER.24H PO SCH (09:11)
[2022-09-10] MEDS: ALPRAZolam 0.5 MG TAB PO SCH (09:11)
[2022-09-10] MEDS: cycloSPORINE 0.05% OPHTH 0.4 ML DROPERETTE BOTH EYES SCH ×2 (09:12→20:16)
[2022-09-10] MEDS: SODIUM BICARBONATE TAB 650 MG TAB PO SCH ×2 (09:12→20:16)
[2022-09-10] MEDS: NON FORMULARY DRUG (Linaclotide [Linzess] 145 MCG Capsule) PO SCH (09:12)
[2022-09-10] MEDS: MULTIVITAMINS, THERA 1 EACH TAB PO SCH (09:12)
[2022-09-10 09:27] LABS: Basophils # (A) 0.02 X 10*3/uL (0.00-0.10); Basophils % (A) 0.1 %; Eosinophils # (A) 0 X 10*3/uL (0.04-0.35); Eosinophils % (A) 0 %; HCT 31.1 % (37.2-46.3); HGB 10.2 g/dL (12.0-15.0); Lymphocytes # (A) 0.98 X 10*3/uL (0.90-5.00); Lymphocytes % (A) 4.7 %; MCH 28.7 pg (27.0-32.0); MCHC 32.8 g/dL (32.0-37.0); MCV 87.6 fL (80.0-97.0); Mean Platelet Volume 10.5 fL (9.5-12.2); Monocytes # (A) 0.38 X 10*3/uL (0.20-1.00); Monocytes % (A) 1.8 %; NRBC Per 100 WBC 0 /100 WBCS (0.0-0.0); Neutrophils # (A) 19.41 X 10*3/uL (1.80-7.70); Neutrophils % (A) 92.4 %; Platelet Count 232 X 10*3/uL (140-440); RBC 3.55 X 10*6/uL (4.10-5.20); WBC 21.01 X 10*3/uL (4.50-10.00)
[2022-09-10 09:39] LABS: African American GFR (CKD) 51.3 (60.0-200.0); Albumin/Globulin Ratio 1.74 (1.60-3.17); Anion Gap 12.1 mmol/L (10.00-18.00); BUN/Creat Ratio 19.77 Ratio (12.00-20.00); Blood Urea Nitrogen 25.7 mg/dL (9.0-27.0); Calcium 8.9 mg/dL (8.7-10.3); Carbon Dioxide 22.9 mmol/L (20.0-27.5); Globulin 2.3 g/dL (1.6-3.3); Non-African American GFR(CKD) 44.2 (60.0-200.0); Potassium 4.1 mmol/L (3.5-5.5); Total Bilirubin 0.3 mg/dL (0.30-1.20); Total Protein 6.3 g/dL (6.2-8.2)
[2022-09-10] MEDS: SODIUM CHLORIDE 0.9% 1,000 ML IV SCH (11:41)
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
[2022-09-10] MEDS: PRAMIPEXOLE 0.5 MG TAB PO SCH (20:16)
[2022-09-10] MEDS: FAMOTIDINE 20 MG TAB PO SCH (20:16)
[2022-09-10] MEDS: QUEtiapine 100 MG TAB PO SCH (20:16)
[2022-09-11] MEDS: traMADol 50 MG TAB PO PRN ×2 (06:52→17:22)
[2022-09-11] MEDS: MULTIVITAMINS, THERA 1 EACH TAB PO SCH (08:16)
[2022-09-11] MEDS: ALPRAZolam 0.5 MG TAB PO SCH (08:16)
[2022-09-11] MEDS: buPROPion XL 300 MG TAB.ER.24H PO SCH (08:17)
[2022-09-11] MEDS: NON FORMULARY DRUG (Linaclotide [Linzess] 145 MCG Capsule) PO SCH (08:18)
[2022-09-11] MEDS: cycloSPORINE 0.05% OPHTH 0.4 ML DROPERETTE BOTH EYES SCH ×2 (08:19→19:58)
[2022-09-11] MEDS: NON FORMULARY DRUG (Buprenorphine Hcl [Subutex] 8 MG Tab.Subl) PO SCH (08:19)
[2022-09-11] MEDS: ACETAMINOPHEN TAB 325 MG TAB PO PRN (08:24)
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
[2022-09-11] MEDS: SODIUM BICARBONATE TAB 650 MG TAB PO SCH ×2 (11:54→19:58)
[2022-09-11 13:10] LABS: Appearance,Urine Clear (Clear); Bacteria,Urine Rare /hpf; Bilirubin,Urine Negative (Negative); Blood,Urine Negative (Negative); Color,Urine Colorless; Glucose,Urine (UA) Negative (Negative); Ketones,Urine Negative (Negative); Leukocyte Esterase,Urine Trace (Negative); Mucus,Urine Rare /hpf; Nitrite,Urine Negative (Negative); PH, Urine 6.5 (5.0-8.0); Protein,Urine Negative (Negative); RBC,Urine 1 /hpf (0-5); Specific Gravity,Urine 1.005 (1.001-1.035); Squamous Epithelial Cell,Urine <1 /hpf (0-4); Urobilinogen,Urine <2.0 mg/dL (<2.0); WBC,Urine 2 /hpf (0-5)
[2022-09-11] MEDS: FAMOTIDINE 20 MG TAB PO SCH (19:58)
[2022-09-11] MEDS: PRAMIPEXOLE 0.5 MG TAB PO SCH (19:58)
[2022-09-11] MEDS: QUEtiapine 100 MG TAB PO SCH (19:58)
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
[2022-09-12] MEDS: traMADol 50 MG TAB PO PRN ×3 (02:29→17:22)
[2022-09-12] MEDS: buPROPion XL 300 MG TAB.ER.24H PO SCH (08:24)
[2022-09-12] MEDS: cycloSPORINE 0.05% OPHTH 0.4 ML DROPERETTE BOTH EYES SCH ×2 (08:24→19:49)
[2022-09-12] MEDS: MULTIVITAMINS, THERA 1 EACH TAB PO SCH (08:24)
[2022-09-12] MEDS: SODIUM BICARBONATE TAB 650 MG TAB PO SCH ×2 (08:24→19:50)
[2022-09-12] MEDS: ALPRAZolam 0.5 MG TAB PO SCH (08:30)
[2022-09-12] MEDS: HEPARIN SODIUM,PORCINE/PF 5,000 UNIT/0.5 ML SYRINGE SQ SCH ×3 (08:32→21:47)
[2022-09-12] MEDS: NON FORMULARY DRUG (Linaclotide [Linzess] 145 MCG Capsule) PO SCH (08:33)
[2022-09-12] MEDS: NON FORMULARY DRUG (Buprenorphine Hcl [Subutex] 8 MG Tab.Subl) PO SCH (08:33)
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
[2022-09-12] MEDS: QUEtiapine 100 MG TAB PO SCH (19:49)
[2022-09-12] MEDS: PRAMIPEXOLE 0.5 MG TAB PO SCH (19:50)
[2022-09-12] MEDS: FAMOTIDINE 20 MG TAB PO SCH (19:50)
[2022-09-12] MEDS: ACETAMINOPHEN TAB 325 MG TAB PO PRN (19:54)
[2022-09-13] MEDS: traMADol 50 MG TAB PO PRN ×2 (00:53→08:30)
[2022-09-13] MEDS: MULTIVITAMINS, THERA 1 EACH TAB PO SCH (08:30)
[2022-09-13] MEDS: ALPRAZolam 0.5 MG TAB PO SCH (08:30)
[2022-09-13] MEDS: buPROPion XL 300 MG TAB.ER.24H PO SCH (08:30)
[2022-09-13] MEDS: SODIUM BICARBONATE TAB 650 MG TAB PO SCH (08:30)
[2022-09-13] MEDS: NON FORMULARY DRUG (Linaclotide [Linzess] 145 MCG Capsule) PO SCH (08:31)
[2022-09-13] MEDS: cycloSPORINE 0.05% OPHTH 0.4 ML DROPERETTE BOTH EYES SCH (08:31)
[2022-09-13] MEDS: NON FORMULARY DRUG (Buprenorphine Hcl [Subutex] 8 MG Tab.Subl) PO SCH (08:31)
[2022-09-13 08:41] VITALS: BP 119/81; PULSE 81; RESP 16; TEMP 97.7
[2022-09-13] MEDS: HEPARIN SODIUM,PORCINE/PF 5,000 UNIT/0.5 ML SYRINGE SQ SCH (09:52)
== END 2022-09-13 09:59 | disposition home or self-care (01) ==
LOC: EC 13:29 → 6NMEDSUR 15:14
PROVIDERS: ADMIT Family Medicine; ATTEND Family Medicine
DX: S80.01XA Contusion of right knee, initial encounter (principal); S80.02XA Contusion of left knee, initial encounter; S50.02XA Contusion of left elbow, initial encounter; S50.01XA Contusion of right elbow, initial encounter; S40.022A Contusion of left upper arm, initial encounter; S40.021A Contusion of right upper arm, initial encounter; V29.99XA Rider (driver) (passenger) of other motorcycle injured in unspecified traffic accident, initial encounter; N17.0 Acute kidney failure with tubular necrosis; I12.9 Hypertensive chronic kidney disease with stage 1 through stage 4 chronic kidney disease, or unspecified chronic kidney disease; N18.31 Chronic kidney disease, stage 3a; E86.1 Hypovolemia; F41.9 Anxiety disorder, unspecified; E87.5 Hyperkalemia; M17.0 Bilateral primary osteoarthritis of knee; G25.81 Restless legs syndrome; J44.9 Chronic obstructive pulmonary disease, unspecified; B19.20 Unspecified viral hepatitis C without hepatic coma; F14.90 Cocaine use, unspecified, uncomplicated; Z86.19 Personal history of other infectious and parasitic diseases; Z87.891 Personal history of nicotine dependence; Z79.51 Long term (current) use of inhaled steroids; Z79.899 Other long term (current) drug therapy
CPT/HCPCS: 96361; 96375; 96376 ×4; 96372; 96374; 99291; 36415; 94760 ×3; 93005; 97162; 86900; 86901; 80053 ×3; 80048; 83735; 84484; 85025 ×3; 85610; 85730; 86850; 81001; 80306; 80320; 73562; 72170; 73060; 71045; 72125; 70450; 74176; G0378 ×6; J2930 ×3; J1170 ×4

== ENCOUNTER → 2024-03-27 | Outpatient (CLI) | payer MEDICARE ==
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
== END | disposition home or self-care (01) ==
LOC: RADCTMAIN 15:12
PROVIDERS: ATTEND Family Medicine
DX: N28.1 Cyst of kidney, acquired (principal); N18.9 Chronic kidney disease, unspecified; R93.89 Abnormal findings on diagnostic imaging of other specified body structures; R07.9 Chest pain, unspecified
CPT/HCPCS: 71250